=== PATIENT | male | born 1955 | race Caucasian/White ===

== ENCOUNTER 2020-07-01 18:07 | Emergency (ER) | payer BC ==
[~2020-07-01] VITALS: Ht 180.3 cm; Wt 97.8 kg
[~2020-07-01 18:07] MED LIST: AMOX1TAB11 PO
[2020-07-01 18:15] VITALS: BP 136/71
[2020-07-01] MEDS ORDERED: FLUORESCEIN 1MG EYE STRIP. OD ONE (18:30)
[2020-07-01] MEDS ORDERED: IOHEXOL 300 MG/ML 75 ML VIAL. IV ONE (18:30)
[2020-07-01] MEDS ORDERED: TETRACAINE 0.5% OPHTH SOLUTION 4ML BOTTLE. OD ONE (18:45)
[2020-07-01 18:57] LABS: BASO # 0.1 x10^3/uL (0.0-0.2); BASO % 1 % (0-3); EOS # 0.3 x10^3/uL (0.0-0.7); EOS % 4 % (0-3); HEMATOCRIT 44.1 % (39.0-53.0); LYMPH # 1.8 x10^3/uL (1.0-4.8); LYMPH % 22 % (24-48); MEAN CORPUSCULAR HEMOGLOBIN 33 pg (25-35); MEAN CORPUSCULAR HGB CONC 34 g/dL (31-37); MEAN CORPUSCULAR VOLUME 96 fL (79-100); MONO # 0.9 x10^3/uL (0.0-1.1); MONO % 11 % (0-9); NEUT # 5.1 x10^3uL (1.8-7.7); NEUT % 63 % (31-73); PLATELET COUNT 251 x10^3/uL (140-400); RED BLOOD COUNT 4.62 x10^6/uL (4.30-5.70); RED CELL DISTRIBUTION WIDTH 13.9 % (11.5-14.5); WHITE BLOOD COUNT 8.1 x10^3/uL (4.0-11.0)
[2020-07-01 19:04] LABS: CALCIUM 8.9 mg/dL (8.5-10.1); CREATININE 0.9 mg/dL (0.7-1.3); GFR 84.4; POTASSIUM 3.5 mmol/L (3.5-5.1)
[2020-07-01 19:10] LABS: ALBUMIN 3.8 g/dL (3.4-5.0); ALBUMIN/GLOBULIN RATIO 1.2 (1.0-1.7); TOTAL BILIRUBIN 0.4 mg/dL (0.2-1.0); TOTAL PROTEIN 7.1 g/dL (6.4-8.2)
--- NOTE | 2020-07-01 19:17 | PHYS DOC ---
Past History Past Medical History: No Pertinent History Past Surgical History: Appendectomy, Other Additional Past Surgical Histo: CARPAL TUNNEL, VASCECTOMY Alcohol Use: Occasionally General Adult EDM: Chief Complaint: EYE PROBLEMS HPI: HPI: 64-year-old male past medical history of tobacco dependence, presents to the ED immediately after patient was grinding metal, felt as if metal went into his right eye. Patient wears glasses, unknown baseline vision, does not wear any contacts. States he feels as if he has metal under his right upper eyelid. Denies any vision loss. Has never been told his pupils are unequal in size. Is not under the influence of any alcohol or drugs. Review of systems: Denies associated fever, chills, cough, dyspnea, headache, blurry vision, neck stiffness, loss of consciousness or syncope, chest pain, diaphoresis, dizziness or neurologic deficits. Review of Systems: Review of Systems: Constitutional: Denies fever or chills Eyes: Denies change in visual acuity HENT: Denies nasal congestion or sore throat Respiratory: Denies cough or shortness of breath Cardiovascular: Denies chest pain or edema GI: Denies abdominal pain, nausea, vomiting, bloody stools or diarrhea : Denies dysuria Musculoskeletal: Denies back pain or joint pain Integument: Denies rash Neurologic: Denies headache, focal weakness or sensory changes Endocrine: Denies polyuria or polydipsia Lymphatic: Denies swollen glands Psychiatric: Denies depression or anxiety Current Medications: Current Meds: Current Medications Medications (Trade) Dose Ordered Sig/Dominik Start Time Stop Time Status Last Admin Dose Admin Fluorescein Sodium (Ful-Regina 1mg) 1 strip 1X ONCE 07/01/20 18:30 07/01/20 18:31 DC 07/01/20 18:25 1 STRIP Iohexol (Omnipaque 300 Mg/ml) 75 ml 1X ONCE 07/01/20 18:30 07/01/20 18:31 DC Tetracaine HCl (Tetracaine) 1 drop 1X ONCE 07/01/20 18:45 07/01/20 18:52 DC 07/01/20 18:42 1 DROP Allergies: Allergies: Allergies Coded Allergies Type Severity Reaction Last Updated Verified No Known Drug Allergies 05/14/15 No Physical Exam: PE: Constitutional: Well developed, well nourished, no acute distress, non-toxic appearance. [] HENT: Normocephalic, atraumatic, nose normal. [] Eyes: left pupil 2mm and reactive, right pupil 4 mm and reactive, EOMI, conjunctiva normal, no discharge. [] Patient has attempted tetracaine, fluorescein strip applied to right eye, with lamp shows very small punctate corneal abrasion at 2 o'clock position, no Yannick sign, globe not flattened, upper eyelid flipped-no visualized foreign body, no conjunctival injection or ciliary flush Neck: Normal range of motion, no tenderness, supple, no stridor. [] Cardiovascular:Heart rate regular rhythm, S1, S2 [] Lungs & Thorax: Speaking full sentences, no respiratory distress [] Abdomen: soft, no tenderness, Skin: Warm, dry, no erythema, no rash. [] Back: No tenderness, no CVA tenderness. [] Extremities: No tenderness, no cyanosis, no clubbing, [] Neurologic: Alert and oriented X 3, normal motor function, normal sensory funct ion, no focal deficits noted. [] Psychologic: Affect normal, judgement normal, mood normal. [] Current Patient Data: Labs: Laboratory Tests Test 07/01/20 18:35 White Blood Count 8.1 x10^3/uL (4.0-11.0) Red Blood Count 4.62 x10^6/uL (4.30-5.70) Hemoglobin 15.0 g/dL (13.0-17.5) Hematocrit 44.1 % (39.0-53.0) Mean Corpuscular Volume 96 fL (79-100) Mean Corpuscular Hemoglobin 33 pg (25-35) Mean Corpuscular Hemoglobin Concent 34 g/dL (31-37) Red Cell Distribution Width 13.9 % (11.5-14.5) Platelet Count 251 x10^3/uL (140-400) Neutrophils (%) (Auto) 63 % (31-73) Lymphocytes (%) (Auto) 22 % (24-48) L Monocytes (%) (Auto) 11 % (0-9) H Eosinophils (%) (Auto) 4 % (0-3) H Basophils (%) (Auto) 1 % (0-3) Neutrophils # (Auto) 5.1 x10^3uL (1.8-7.7) Lymphocytes # (Auto) 1.8 x10^3/uL (1.0-4.8) Monocytes # (Auto) 0.9 x10^3/uL (0.0-1.1) Eosinophils # (Auto) 0.3 x10^3/uL (0.0-0.7) Basophils # (Auto) 0.1 x10^3/uL (0.0-0.2) Sodium Level 139 mmol/L (136-145) Potassium Level 3.5 mmol/L (3.5-5.1) Chloride Level 105 mmol/L (98-107) Carbon Dioxide Level 27 mmol/L (21-32) Anion Gap 7 (6-14) Blood Urea Nitrogen 15 mg/dL (8-26) Creatinine 0.9 mg/dL (0.7-1.3) Estimated GFR (Cockcroft-Gault) 84.4 BUN/Creatinine Ratio 17 (6-20) Glucose Level 93 mg/dL (70-99) Calcium Level 8.9 mg/dL (8.5-10.1) Total Bilirubin 0.4 mg/dL (0.2-1.0) Aspartate Amino Transferase (AST) 19 U/L (15-37) Alanine Aminotransferase (ALT) 28 U/L (16-63) Alkaline Phosphatase 59 U/L (46-116) Total Protein 7.1 g/dL (6.4-8.2) Albumin 3.8 g/dL (3.4-5.0) Albumin/Globulin Ratio 1.2 (1.0-1.7) Vital Signs: Vital Signs Date Time Temp Pulse Resp B/P (MAP) Pulse Ox O2 Delivery O2 Flow Rate FiO2 07/01/20 18:15 98.1 58 20 136/71 (92) 96 Room Air EKG: EKG: [] Radiology/Procedures: Radiology/Procedures: IMAGING REPORT Signed PATIENT: JOHNY OCASIO ACCOUNT: [id number] : 1955 LOCATION: ER AGE: 64 SEX: M EXAM STATUS: PRE ER ORD. PHYSICIAN: YOLIS BETANCUR DO REASON: Foreign body(possibly metal)to right eye, headache PROCEDURE: CT HEAD WO CONTRAST CT scan of the head without contrast 07/01/2020 Clinical History: Headache. Technique: Unenhanced, contiguous, 5 mm axial sections were obtained through the head. One or more of the following individualized dose reduction techniques were utilized for this study: 1. Automated exposure control. 2. Adjustment of the mA and/or kV according to patient size. 3. Use of iterative reconstruction technique. Findings: There is mild generalized parenchymal atrophy. No acute parenchymal abnormality is seen. No extra-axial fluid collection is noted. No skull fracture is seen. Impression: No acute intracranial abnormality is seen. Electronically signed by: Rick Marie MD (07/01/2020 7:12 PM) [id number] DICTATED AND SIGNED BY: RICK MARIE MD DATE: 07/01/201911 CC: TAMMY NOBLE MD; YOLIS BETANCUR DO ~ IMAGING REPORT Signed PATIENT: JOHNY OCASIO ACCOUNT: [id number] : 1955 LOCATION: ER AGE: 64 SEX: M EXAM STATUS: PRE ER ORD. PHYSICIAN: YOLIS BETANCUR DO REASON: Foreign body(possibly metal)to right eye today PROCEDURE: CT ORBITS WO CONTRAST CT scan of the orbits without contrast 07/01/2020 CLINICAL HISTORY: Mental exposure to the eyes. Concern for foreign body. TECHNIQUE: Unenhanced, contiguous, 0.625 mm axial sections were obtained through the orbits. 2 mm reconstructed sagittal, axial and coronal images were obtained. One or more of the following individualized dose reduction techniques were utilized for this study: 1. Automated exposure control. 2. Adjustment of the mA and/or kV according to patient size. 3. Use of iterative reconstruction technique. FINDINGS: No radiopaque foreign body is seen involving either orbit. No orbital fracture is seen. The paranasal sinuses are clear. No air-fluid level is noted. IMPRESSION: No radiopaque foreign body is seen. Electronically signed by: Rick Marie MD (07/01/2020 7:15 PM) [id number] DICTATED AND SIGNED BY: RICK MARIE MD DATE: 07/01/201914 CC: TAMMY NOBLE MD; YOLIS BETANCUR DO ~ Impressions: Concern for possible metal foreign body in right eye with anisocoria - enlarged right pupil. Pt very tough, does not appear uncomfortable and tolerated eye exam well. No epiphora or severe pain with light, considered uveitis (no slit lamp in ed) vs globe rupture (although globe is intact) vs traumatic mydriasis (dx of exclusion). CT images head/orbit w/o contrast with no acute abnormality. Visual acuities w/no apparent vision loss. Pt states he sees better without his glasses and has not been to the eye doctor in a few years. Will be referred to optho in 24-48 hours for follow-up. 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 Strict ED return precautions were given for vision loss. Vision loss/threatening conditions considered. Encouraged PMD follow-up. All patient's questions were answered and he was stable at time of discharge. Course & Med Decision Making: Course & Med Decision Making Pertinent Labs and Imaging studies reviewed. (See chart for details) [] Dragon Disclaimer: Dragon Disclaimer: This electronic medical record was generated, in whole or in part, using a voice recognition dictation system. Departure Departure: Impression: Primary Impression: Right corneal abrasion Disposition: HOME/RESIDENCE PRIOR TO ADM Condition: STABLE Referrals: TAMMY NOBLE MD (PCP) Dr. Kobi Casas [phone] opthalmology Patient Instructions: Eye - Corneal Abrasion Scripts Ciprofloxacin Hcl (CIPROFLOXACIN HCL) 2.5 Ml Drops 2 DROP OS QID for corneal abrasion for 5 Days, #5 ML 0 Refills Prov: YOLIS BETANCUR DO 07/01/20 Justification of Admission: Justification of Admission: Justification of Admission Dx: N/A YOLIS BETANCUR DO Jul 01, 2020 19:17
[2020-07-01] MEDS ORDERED: CIPR2.5D OS (20:40)
== END 2020-07-01 20:45 | disposition home or self-care (01) ==
LOC: ER 18:07
DX: S05.01XA Injury of conjunctiva and corneal abrasion without foreign body, right eye, initial encounter (principal); X58.XXXA Exposure to other specified factors, initial encounter; Y93.89 Activity, other specified; Y92.89 Other specified places as the place of occurrence of the external cause; Y99.8 Other external cause status
CPT/HCPCS: 36415; 70450; 70480; 80053; 85025; 99285-25